=== PATIENT | female | born 1950 | race Caucasian/White ===

== ENCOUNTER 2016-09-12 07:29 | Outpatient (CLI) | payer MEDICARE, OTHER | END 2016-09-12 07:30 | disposition home or self-care (01) | DX: Z00.00 Encounter for general adult medical examination without abnormal findings (principal); M81.0 Age-related osteoporosis without current pathological fracture; Z13.6 Encounter for screening for cardiovascular disorders; Z80.41 Family history of malignant neoplasm of ovary ==

== ENCOUNTER 2016-10-03 13:25 | Outpatient (CLI) | payer MEDICARE, OTHER ==
--- NOTE | 2016-10-05 14:34 | Mammography Report ---
DIGITAL SCREENING MAMMOGRAM: 10/03/2016 CLINICAL INDICATION: A 66-year-old with history of late childbearing, family history of breast cance r for screening. COMPARISON: 09/2015, 09/2014, 07/2013, 07/2012, 06/2011, 04/2010, 04/2009, 06/2007. TECHNIQUE: Routine CC and MLO projections were obtained of the breasts as well as bilateral laterall y exaggerated craniocaudal views. FINDINGS: The breasts again demonstrate heterogeneously dense fibroglandular parenchyma bilaterally. Coarse and punctate, typically benign calcifications are present. No suspicious masses, clustered microcalcifications, or regions of architectural distortion are identified. IMPRESSION: BENIGN FINDINGS. RECOMMENDATION: Routine annual screening unless otherwise clinically indicated. BI-RADS category 2, benign findings. STANDARD QUALIFYING STATEMENTS 1. This examination was reviewed with the aid of Computer-Aided Detection (CAD). 2. A negative or benign imaging report should not delay biopsy if clinically suspicious findings are present. Consider surgical consultation if warranted. More than 5% of cancers are not identified by i maging. 3. Dense breasts may obscure an underlying neoplasm. JOB #: [id number] EXT JOB #:[id number]
== END 2016-10-03 13:26 | disposition home or self-care (01) ==
LOC: DI 13:25
PROVIDERS: ATTEND Physician Assistant Medical
DX: Z12.31 Encounter for screening mammogram for malignant neoplasm of breast (principal); Z80.3 Family history of malignant neoplasm of breast
CPT/HCPCS: 77067

== ENCOUNTER 2016-10-03 13:26 | Outpatient (CLI) | payer MEDICARE, OTHER | END 2016-10-03 13:27 | disposition home or self-care (01) | DX: Z13.820 Encounter for screening for osteoporosis (principal); M81.0 Age-related osteoporosis without current pathological fracture; Z78.0 Asymptomatic menopausal state ==

== ENCOUNTER 2017-02-12 07:10 | Outpatient (CLI) | payer MEDICARE, OTHER ==
--- NOTE | 2017-02-12 13:23 | CARDIAC PROCEDURE NOTE ---
DATE OF SERVICE: 02/12/2017 00:00:00 PROCEDURE: Ej protocol treadmill for echocardiographic left ventricular imaging. INDICATIONS: A 66-year-old female with positive family history and with atypical chest symptoms. PROCEDURE: The patient was exercised in the standard fashion on Ej protocol for 10 minutes and 5 s econds, essentially 4 minutes beyond predicted time. She had a normal blood pressure and pulse respon se. She experienced no chest pain. There were no diagnostic EKG changes. She had 1 PVC during recover y, but otherwise no ectopy was noted. IMPRESSION: Negative ETT in a patient undergoing procedure for echocardiographic imaging. See echo re carol for detail. JOB #: [id number] EXT JOB #:[id number]
[2017-02-13 09:59] VITALS: BP 102/60
== END 2017-02-12 07:11 | disposition home or self-care (01) ==
LOC: DI 07:10
PROVIDERS: ATTEND Physician Assistant Medical
DX: R00.2 Palpitations (principal); Z82.49 Family history of ischemic heart disease and other diseases of the circulatory system
CPT/HCPCS: 93350

== ENCOUNTER 2017-02-14 10:35 | Outpatient (CLI) | payer MEDICARE, OTHER | END 2017-02-14 10:36 | disposition home or self-care (01) | LOC: LAB 10:35 | PROVIDERS: ATTEND Physician Assistant Medical | DX: Z01.89 Encounter for other specified special examinations (principal) | CPT/HCPCS: 36415 ==

== ENCOUNTER 2017-10-25 07:32 | Outpatient (CLI) | payer MEDICARE, OTHER ==
[2017-10-25 07:49] LABS: BASOPHILS % (AUTO) 0.8 %; EOSINOPHILS # (AUTO) 0.1 10^3/uL (0.0-0.7); EOSINOPHILS % (AUTO) 2.7 %; HGB - HEMOGLOBIN 13.6 g/dL (12.0-16.0); LYMPHOCYTES # (AUTO) 2.1 10^3/uL (1.5-3.5); LYMPHOCYTES % (AUTO) 38.5 %; MEAN CORPUSCULAR HEMOGLOBIN 30.1 pg (27.0-31.0); MEAN CORPUSCULAR HGB CONC 34.2 g/dL (32.0-36.0); MEAN CORPUSCULAR VOLUME 87.8 fL (81.0-99.0); MEAN PLATELET VOLUME 7.3 fL (7.9-10.8); MONOCYTES # (AUTO) 0.5 10^3/uL (0.0-1.0); MONOCYTES % (AUTO) 9.7 %; NEUTROPHILS # (AUTO) 2.7 10^3/uL (1.5-6.6); NEUTROPHILS % (AUTO) 48.3 %; PLT - PLATELET COUNT 221 10^3/uL (130-450); RED BLOOD COUNT 4.51 10^6/uL (4.20-5.40); RED CELL DISTRIBUTION WIDTH 13.3 % (12.0-15.0); WHITE BLOOD COUNT 5.5 x10^3/uL (4.8-10.8)
[2017-10-25 08:16] LABS: ALBUMIN 3.9 g/dL (3.2-5.5); ALBUMIN/GLOBULIN RATIO 1.5 (1.0-2.2); ALKALINE PHOSPHATASE 64 IU/L (42-121); ALT ALANINE AMINOTRANSFERASE 34 IU/L (10-60); AST ASPARTATE AMINOTRANSFERASE 29 IU/L (10-42); BILIRUBIN,TOTAL 0.9 mg/dL (0.2-1.0); BUN - BLOOD UREA NITROGEN 15 mg/dL (6-20); CALCIUM 8.7 mg/dL (8.5-10.3); CARBON DIOXIDE - CO2 27 mmol/L (21-32); CHLORIDE 105 mmol/L (101-111); CHOL/HDL RATIO 3.2 (<4.4); CHOLESTEROL 202 mg/dL; CREATININE 0.9 mg/dL (0.4-1.0); GFR - MDRD 62 (>89); GLUCOSE 101 mg/dL (70-100); HDL CHOLESTEROL 63 mg/dL; LDL CHOLESTEROL,CALCULATED 125 mg/dL; SODIUM 138 mmol/L (135-145); TOTAL PROTEIN 6.5 g/dL (6.7-8.2); VLDL CHOLESTEROL 14 mg/dL
[2017-10-25 09:01] LABS: CA 125 12.2 U/mL (0.0-35.0)
[2017-10-25 09:05] LABS: THYROID STIMULATING HORMONE 2.3 uIU/mL (0.34-5.60)
[2017-10-26 16:02] LABS: HEPATITIS C ANTIBODY NON-REACTIVE (NON-REACTIVE)
== END 2017-10-25 07:33 | disposition home or self-care (01) ==
LOC: LAB 07:32
PROVIDERS: ATTEND Physician Assistant Medical
DX: M81.0 Age-related osteoporosis without current pathological fracture (principal); Z79.899 Other long term (current) drug therapy; G47.00 Insomnia, unspecified; Z72.89 Other problems related to lifestyle; Z80.41 Family history of malignant neoplasm of ovary; R00.2 Palpitations; E78.2 Mixed hyperlipidemia
CPT/HCPCS: 36415; 80053; 80061; 82306; 83721; 84443; 85025; 86304; 86803

== ENCOUNTER 2017-11-01 09:36 | Outpatient (CLI) | payer MEDICARE, OTHER ==
--- NOTE | 2017-11-02 14:45 | Mammography Report ---
SCREENING MAMMOGRAM: 11/01/2017 COMPARISON: 10/03/2016, 09/30/2015, 10/12/2014, 08/04/2013, 07/31/2012, 07/03/2011 and 04/28/2010. TECHNIQUE: Bilateral digital CC, exaggerated CC, and MLO projections. FINDINGS: The breast tissue is extremely dense. Scattered benign-appearing calcifications are similar to previous. No dominant mass, architectural distortion, skin thickening, suspicious microcalcifications or interval change. IMPRESSION: NEGATIVE. BIRADS CATEGORY - 1. RECOMMENDATION: Suggest to return to routine screening in 12 months. STANDARD QUALIFYING STATEMENTS: 1. This examination was reviewed with the aid of Computer-Aided Detection (CAD). 2. A negative or benign imaging report should not delay biopsy if clinically suspicious findings are present. Consider surgical consultation if warranted. More than 5% of cancers are not identified by imaging. 3. Dense breasts may obscure an underlying neoplasm. TD: 11/02/2017 13:04
== END 2017-11-01 09:37 | disposition home or self-care (01) ==
LOC: DI 09:36
PROVIDERS: ATTEND Physician Assistant Medical
DX: Z12.31 Encounter for screening mammogram for malignant neoplasm of breast (principal)
CPT/HCPCS: 77067

== ENCOUNTER 2018-11-25 12:20 | Outpatient (CLI) | payer MEDICARE, OTHER ==
--- NOTE | 2018-11-25 16:16 | Ultrasound Report ---
Reason: FAMILY HISTORY OF OVARIAN CANCER IN 1ST DEGREE REL Procedure Date: 11/25/2018 Accession Number: [id number] / [id number] Procedure: US - Pelvic w/Transvaginal CPT Code: FULL RESULT: EXAM: PELVIC ULTRASOUND EXAM DATE: 11/25/2018 12:37 PM. CLINICAL HISTORY: FAMILY HISTORY OF OVARIAN CANCER IN 1ST DEGREE REL. COMPARISON: Pelvic ultrasound 04/02/2014. TECHNIQUE: Realtime transabdominal pelvic scan performed to identify the uterus and adnexa and as an overview of other pelvic structures, followed by transvaginal scan to provide greater detail of the uterus and adnexa, with static image documentation. FINDINGS: Uterus: 5.6 x 1.8 x 3.1 cm, volume 16.3 cc. Anteverted position. Normal overall size and echotexture. Masses: 1 x 0.9 x 0.8 cm possible anterior uterine fibroid. Endometrium: 1.7 mm. Normal. Cervix: Unremarkable. Right Ovary: Not seen. No adnexal masses. Left Ovary: Not seen. No adnexal masses. Free Fluid: None. Other: None. IMPRESSION: Essentially negative pelvic ultrasound for age. No free fluid or adnexal masses appreciated. RADIA
== END 2018-11-25 12:21 | disposition home or self-care (01) ==
LOC: DI 12:20
PROVIDERS: ATTEND Family Medicine
DX: Z80.41 Family history of malignant neoplasm of ovary (principal)
CPT/HCPCS: 76830; 76856

== ENCOUNTER 2018-11-25 12:26 | Outpatient (CLI) | payer MEDICARE, OTHER ==
--- NOTE | 2018-11-26 10:42 | Mammography Report ---
Reason: FAMILY HISTORY OF BREAST CANCER,SCREENING MAMMO Procedure Date: 11/25/2018 Accession Number: [id number] / [id number] Procedure: TRAM - Screening Mammo w/Kalyan CPT Code: FULL RESULT: EXAM: Screening Mammo w/Kalyan DATE: 11/25/2018 1:46 PM CLINICAL HISTORY: Mother and grandmother with history of breast cancer. Routine screening. TECHNIQUE: (B) - Bilateral CC and MLO views were obtained. COMPARISON: 11/01/2017, 10/03/2016, 09/30/2015, 10/12/2014 PARENCHYMAL PATTERN: (VD) - The breasts demonstrate extremely dense parenchyma bilaterally, limiting the sensitivity of mammography. FINDINGS: No significant interval change. There are no suspicious masses, calcifications, or areas of distortion. IMPRESSION: Negative examination. BI-RADS category 1. RECOMMENDATION: (ANNUAL) - Recommend routine annual screening mammography. BI-RADS CATEGORY: (1) - Negative. STANDARD QUALIFYING STATEMENTS: 1. This examination was not reviewed with the aid of Computer-Aided Detection (CAD). 2. A negative or benign imaging report should not preclude biopsy if clinically suspicious findings are present. 3. Dense breasts may obscure an underlying neoplasm. 4. This examination was reviewed with the aid of 3D breast imaging (tomosynthesis).
== END 2018-11-25 12:27 | disposition home or self-care (01) ==
LOC: DI 12:26
PROVIDERS: ATTEND Family Medicine
DX: Z12.31 Encounter for screening mammogram for malignant neoplasm of breast (principal); Z80.3 Family history of malignant neoplasm of breast; Z80.41 Family history of malignant neoplasm of ovary
CPT/HCPCS: 77063; 77067

== ENCOUNTER 2018-12-02 07:55 | Outpatient (CLI) | payer MEDICARE, OTHER ==
[2018-12-02 08:39] LABS: BASOPHILS % (AUTO) 0.8 %; EOSINOPHILS # (AUTO) 0.1 10^3/uL (0.0-0.7); EOSINOPHILS % (AUTO) 1.8 %; HGB - HEMOGLOBIN 13.8 g/dL (12.0-16.0); LYMPHOCYTES % (AUTO) 39.4 %; MEAN CORPUSCULAR HEMOGLOBIN 30.4 pg (27.0-31.0); MEAN CORPUSCULAR HGB CONC 33.6 g/dL (32.0-36.0); MEAN CORPUSCULAR VOLUME 90.5 fL (81.0-99.0); MEAN PLATELET VOLUME 9.8 fL (7.9-10.8); MONOCYTES # (AUTO) 0.6 10^3/uL (0.0-1.0); MONOCYTES % (AUTO) 11.4 %; NEUTROPHILS # (AUTO) 2.4 10^3/uL (1.5-6.6); NEUTROPHILS % (AUTO) 46.4 %; PLT - PLATELET COUNT 227 10^3/uL (130-450); RED BLOOD COUNT 4.54 10^6/uL (4.20-5.40); RED CELL DISTRIBUTION WIDTH 12.9 % (12.0-15.0); WHITE BLOOD COUNT 5.1 x10^3/uL (4.8-10.8)
[2018-12-02 08:41] LABS: ALBUMIN/GLOBULIN RATIO 1.4 (1.0-2.2); ALKALINE PHOSPHATASE 70 IU/L (42-121); ALT ALANINE AMINOTRANSFERASE 24 IU/L (10-60); AST ASPARTATE AMINOTRANSFERASE 25 IU/L (10-42); BUN - BLOOD UREA NITROGEN 15 mg/dL (6-20); CALCIUM 9.3 mg/dL (8.5-10.3); CARBON DIOXIDE - CO2 25 mmol/L (21-32); CHLORIDE 107 mmol/L (101-111); CHOL/HDL RATIO 3.7 (<4.4); CHOLESTEROL 235 mg/dL; CREATININE 0.7 mg/dL (0.4-1.0); GFR - MDRD 83 (>89); GLUCOSE 104 mg/dL (70-100); HDL CHOLESTEROL 64 mg/dL; LDL CHOLESTEROL,CALCULATED 158 mg/dL; LDL/HDL RATIO 2.5 (<4.4); SODIUM 143 mmol/L (135-145); TOTAL PROTEIN 6.9 g/dL (6.7-8.2); VLDL CHOLESTEROL 13 mg/dL
[2018-12-02 09:11] LABS: THYROID STIMULATING HORMONE 2.37 uIU/mL (0.34-5.60)
== END 2018-12-02 07:56 | disposition home or self-care (01) ==
LOC: LAB 07:55
PROVIDERS: ATTEND Family Medicine
DX: M85.80 Other specified disorders of bone density and structure, unspecified site (principal); E78.2 Mixed hyperlipidemia; Z80.3 Family history of malignant neoplasm of breast; S62.9 Unspecified fracture of hand; K58.9 Irritable bowel syndrome, unspecified; Z80.41 Family history of malignant neoplasm of ovary
CPT/HCPCS: 36415; 80053; 80061; 83721; 84443; 85025; 86304

== ENCOUNTER 2020-11-03 07:28 | Outpatient (CLI) | payer MEDICARE, OTHER ==
[2020-11-03 07:50] LABS: BASOPHILS % (AUTO) 0.8 %; EOSINOPHILS # (AUTO) 0.1 10^3/uL (0.0-0.7); EOSINOPHILS % (AUTO) 2.7 %; HCT - HEMATOCRIT 40.4 % (37.0-47.0); HGB - HEMOGLOBIN 13.3 g/dL (12.0-16.0); LYMPHOCYTES # (AUTO) 1.9 10^3/uL (1.5-3.5); LYMPHOCYTES % (AUTO) 38.9 %; MEAN CORPUSCULAR HGB CONC 32.9 g/dL (32.0-36.0); MEAN PLATELET VOLUME 9.7 fL (7.9-10.8); MONOCYTES # (AUTO) 0.4 10^3/uL (0.0-1.0); MONOCYTES % (AUTO) 8.8 %; NEUTROPHILS # (AUTO) 2.4 10^3/uL (1.5-6.6); NEUTROPHILS % (AUTO) 48.4 %; PLT - PLATELET COUNT 240 10^3/uL (130-450); RED BLOOD COUNT 4.44 10^6/uL (4.20-5.40); WHITE BLOOD COUNT 4.9 x10^3/uL (4.8-10.8)
[2020-11-03 08:09] LABS: ALBUMIN 3.7 g/dL (3.2-5.5); ALBUMIN/GLOBULIN RATIO 1.2 (1.0-2.2); ALKALINE PHOSPHATASE 61 IU/L (42-121); ALT ALANINE AMINOTRANSFERASE 22 IU/L (10-60); AST ASPARTATE AMINOTRANSFERASE 22 IU/L (10-42); BILIRUBIN,TOTAL 0.5 mg/dL (0.2-1.0); BUN - BLOOD UREA NITROGEN 15 mg/dL (6-20); CALCIUM 9.4 mg/dL (8.5-10.3); CARBON DIOXIDE - CO2 27 mmol/L (21-32); CHLORIDE 109 mmol/L (101-111); CHOL/HDL RATIO 3.4 (<4.4); CHOLESTEROL 199 mg/dL; CREATININE 0.7 mg/dL (0.4-1.0); GFR - MDRD 82 (>89); GLUCOSE 101 mg/dL (70-100); HDL CHOLESTEROL 59 mg/dL; LDL CHOLESTEROL,CALCULATED 130 mg/dL; LDL/HDL RATIO 2.2 (<4.4); POTASSIUM 4.1 mmol/L (3.5-5.0); SODIUM 143 mmol/L (135-145); TOTAL PROTEIN 6.7 g/dL (6.7-8.2); TRIGLYCERIDES 48 mg/dL; VLDL CHOLESTEROL 10 mg/dL
[2020-11-03 08:16] LABS: CA 125 11.3 U/mL (0.0-35.0)
[2020-11-03 08:20] LABS: THYROID STIMULATING HORMONE 2.07 uIU/mL (0.34-5.60)
== END 2020-11-03 07:29 | disposition home or self-care (01) ==
LOC: LAB 07:28
PROVIDERS: ATTEND Family Medicine
DX: M85.80 Other specified disorders of bone density and structure, unspecified site (principal); E78.2 Mixed hyperlipidemia; Z80.41 Family history of malignant neoplasm of ovary
CPT/HCPCS: 36415; 80053; 80061; 83721; 84443; 85025; 86304

== ENCOUNTER 2020-12-27 09:56 | Emergency (ER) | payer MEDICARE, OTHER ==
[2020-12-27] MEDS ORDERED: SODIUM CHLORIDE 0.9% 1,000 ML IV STA (10:27)
[2020-12-27] MEDS ORDERED: LIDOCAINE VISCOUS 2% 15 ML UDC MM STA (10:28)
[2020-12-27] MEDS ORDERED: MAG HYDROX/AL HYDROX/SIMETH 30 ML UDC PO STA (10:28)
--- NOTE | 2020-12-27 10:28 | ED Physician Documentation ---
PD HPI ABD PAIN - Stated complaint Stated Complaint: ABD PX - Chief complaint Chief Complaint: Abd Pain - History obtained from History obtained from: Patient - Additional information Additional information: Very healthy 70-year-old woman with recent issues with her eyes and was on Dex Methasone/tobramycin drops 2 weeks ago and stopped. Thinks over the last 3 days has developed left upper quadrant pain which is mild, waxing and waning and profound nausea that is worse when she eats or drinks anything. She is never had this before. No diarrhea. No history of abdominal surgeries. She has been taking Zofran which helps a lot with the nausea. Had a recent positive Cologuard, no colonoscopy yet. She is fully immunized against Covid but would like a Covid test today wondering if this might be at the delta variant. Review of Systems Ten Systems: 10 systems reviewed and negative Constitutional: reports: Reviewed and negative Ears: reports: Reviewed and negative Nose: reports: Reviewed and negative Throat: reports: Reviewed and negative Cardiac: reports: Reviewed and negative PD PAST MEDICAL HISTORY - Past Medical History Cardiovascular: None Respiratory: None Endocrine/Autoimmune: None GI: Other : None HEENT: None Psych: None Musculoskeletal: Osteoporosis Derm: None - Past Surgical History General: Colonoscopy - Present Medications Home Medications: Ambulatory Orders Medication Instructions Recorded Confirmed Multivitamin [Multivitamins] 1 each PO 08/18/13 08/18/13 [place]-3 Fatty Acids [Fish Oil] 300 mg PO DAILY 08/18/13 12/27/20 Omeprazole [PriLOSEC] 20 mg PO DAILY #30 cap 12/27/20 Ondansetron Odt [Zofran] 4 mg TL Q6H PRN #20 tablet 12/27/20 Temazepam [Restoril] 1 tab PO HS 12/27/20 12/27/20 Temazepam [Restoril] 15 mg PO HS #10 12/27/20 hydrOXYzine HCL [Hydroxyzine HCl] 10 mg PO Q6H PRN #20 tablet 12/27/20 - Allergies Allergies/Adverse Reactions: Allergies Allergy/AdvReac Type Severity Reaction Status Date / Time prochlorperazine edisylate * Allergy Severe Muscle Verified 12/27/20 10:35 [From Compazine] Spasms prochlorperazine maleate * Allergy Severe Muscle Verified 12/27/20 10:35 [From Compazine] Spasms tetracycline [Tetracycline] Allergy Severe Heart Verified 12/27/20 10:35 Palpitations, Stomach Cramping Corticosteroids Allergy Headache Verified 12/27/20 10:35 (Glucocorticoids) dexamethasone Allergy Hallucinati Verified 12/27/20 10:35 ons PD ED PE NORMAL - Vitals Vital signs reviewed: Yes - General General: Alert and oriented X 3, No acute distress - HEENT HEENT: PERRL, EOMI - Neck Neck: Supple, no meningeal sign, No bony TTP - Cardiac Cardiac: RRR, No murmur - Respiratory Respiratory: No respiratory distress - Abdomen Abdomen: Normal bowel sounds, Soft, Other (She does have a palpable aorta, that said she is fairly skinny so it may not be pathologic. Has mild upper abdominal tenderness without surgical signs) - Back Back: No CVA TTP, No spinal TTP - Derm Derm: Normal color, Warm and dry - Extremities Extremities: No edema, No calf tenderness / cord - Neuro Neuro: Alert and oriented X 3, Normal speech Results - Vitals Vitals: Vital Signs - 24 hr 12/27/20 12/27/20 10:05 13:47 Temperature 36.2 C L Heart Rate 112 H 92 Respiratory 16 18 Rate Blood Pressure 139/82 H 128/78 O2 Saturation 98 98 Oxygen O2 Source Room air - Labs Labs: Laboratory Tests 12/27/20 12/27/20 10:45 10:45 WBC 7.3 RBC 5.17 Hgb 15.6 Hct 46.6 MCV 90.1 MCH 30.2 MCHC 33.5 RDW 12.4 Plt Count 256 MPV 9.6 Neut # (Auto) 5.2 Lymph # (Auto) 1.6 [place] # (Auto) 0.5 Eos # (Auto) 0.1 Baso # (Auto) 0.0 Absolute Nucleated RBC 0.00 Nucleated RBC % 0.0 Sodium 136 Potassium 3.9 Chloride 100 L Carbon Dioxide 24 Anion Gap 12.0 BUN 14 Creatinine 0.8 Estimated GFR (MDRD) 71 L Glucose 100 Calcium 9.7 Total Bilirubin 1.2 H AST 25 ALT 25 Alkaline Phosphatase 77 Total Protein 7.7 Albumin 4.7 Globulin 3.0 Albumin/Globulin Ratio 1.6 Lipase 30 - Rads (name of study) CT A/P Radiology: EMP read contemporaneously PD MEDICAL DECISION MAKING - ED course ED course: 70-year-old woman presents with left upper quadrant pain, benign examination, also nausea but seems to get relief from Zofran. Declined GI cocktail here. CT with some incidental findings which were discussed with the patient, labs unremarkable. She has a colonoscopy scheduled next month. Discussed with her that we will start a PPI and may be consider calling the surgeon to consider adding on an upper endoscopy and expediting. Prior to discharge inquired if she could start some anxiety medicine. She did not want to start an SSRI and wanted something nonaddictive. Departure - Departure Disposition: Home, Self Care Clinical Impression: Abdominal pain Qualifiers: Abdominal location: left upper quadrant Qualified Code(s): R10.12 - Left upper quadrant pain Condition: Good Record reviewed to determine appropriate education?: Yes Instructions: ED PUD Vs Gastritis Follow-Up: Jaime Olivo MD [Provider Admit Priv/Credential] - Prescriptions: hydrOXYzine HCL [Hydroxyzine HCl] 10 mg PO Q6H PRN #20 tablet PRN Reason: Anxiety Omeprazole [PriLOSEC] 20 mg PO DAILY #30 cap Temazepam [Restoril] 15 mg PO HS #10 Ondansetron Odt [Zofran] 4 mg TL Q6H PRN #20 tablet PRN Reason: Nausea / Vomiting Comments: Call Dr. Olivo's office, let them know you are now having upper abdominal issues. They may want to expedite your lower endoscopy and add on an upper endoscopy with biopsies. Return for new or worsening symptoms. You have a Covid test pending. You need to self quarantine until the result is done and negative. Do not leave your house. Do not get near anybody. The results should be done in 48 to 72 hours. We will call with a positive result, the fastest way to get a negative result for confirmation though is to go to the hospital website at [email or web address], click on the my [facility] tab and sign up for the patient portal. If any friends or family get sick and would like to have a Covid test done, but do not have signs or symptoms that would necessitate being hospitalized, we encourage testing through our coronavirus swabbing station, call [phone] to schedule an appointment. Discharge Date/Time: 12/27/20 13:48
[2020-12-27 10:58] LABS: BASOPHILS % (AUTO) 0.5 %; EOSINOPHILS # (AUTO) 0.1 10^3/uL (0.0-0.7); EOSINOPHILS % (AUTO) 0.7 %; HCT - HEMATOCRIT 46.6 % (37.0-47.0); HGB - HEMOGLOBIN 15.6 g/dL (12.0-16.0); LYMPHOCYTES # (AUTO) 1.6 10^3/uL (1.5-3.5); MEAN CORPUSCULAR HEMOGLOBIN 30.2 pg (27.0-31.0); MEAN CORPUSCULAR HGB CONC 33.5 g/dL (32.0-36.0); MEAN CORPUSCULAR VOLUME 90.1 fL (81.0-99.0); MEAN PLATELET VOLUME 9.6 fL (7.9-10.8); MONOCYTES # (AUTO) 0.5 10^3/uL (0.0-1.0); MONOCYTES % (AUTO) 6.2 %; NEUTROPHILS # (AUTO) 5.2 10^3/uL (1.5-6.6); NEUTROPHILS % (AUTO) 70.5 %; PLT - PLATELET COUNT 256 10^3/uL (130-450); RED BLOOD COUNT 5.17 10^6/uL (4.20-5.40); RED CELL DISTRIBUTION WIDTH 12.4 % (12.0-15.0); WHITE BLOOD COUNT 7.3 x10^3/uL (4.8-10.8)
[2020-12-27 11:12] LABS: ALBUMIN 4.7 g/dL (3.2-5.5); ALBUMIN/GLOBULIN RATIO 1.6 (1.0-2.2); BILIRUBIN,TOTAL 1.2 mg/dL (0.2-1.0); CALCIUM 9.7 mg/dL (8.5-10.3); CREATININE 0.8 mg/dL (0.4-1.0); POTASSIUM 3.9 mmol/L (3.5-5.0); TOTAL PROTEIN 7.7 g/dL (6.7-8.2)
[2020-12-27] MEDS ORDERED: ONDANSETRON 4 MG/2 ML VIAL IVP STA (11:31)
[2020-12-27] MEDS ORDERED: IOPAMIDOL-300 100 ML VIAL ONE (11:36)
--- NOTE | 2020-12-27 13:02 | CT Report ---
PROCEDURE: Abdomen/Pelvis W INDICATIONS: IV only, LUQ pain CONTRAST: IV CONTRAST: Isovue 300, 100ml ; *NO PO CONTRAST TECHNIQUE: After the administration of intravenous contrast, 5 mm thick sections acquired from the diaphragms to the symphysis. 5 mm thick coronal and sagittal reformats were acquired. For radiation dose reducti on, the following was used: automated exposure control, adjustment of mA and/or kV according to sean ent size. COMPARISON: None. FINDINGS: Image quality: Excellent. ABDOMEN: Lung bases: Lung bases are clear. Heart size is normal. Solid organs: Liver and spleen are normal in size and enhancement. Gallbladder is within normal strong its Biliary system is non dilated. Pancreas enhances normally. No adrenal nodules. Kidneys demons trate normal size and enhancement, without hydronephrosis. 1.5 cm right renal cyst. Peritoneum and bowel: Bowel loops demonstrate normal wall thickness and caliber. Scattered colonic d iverticuli without evidence of diverticulitis. No free fluid or air. The appendix is normal. Nodes and vessels: No retroperitoneal or mesenteric adenopathy by size criteria. Aorta and inferior vena cava are normal in size. Miscellaneous: No ventral hernias. PELVIS: Genitourinary: Bladder wall thickness is normal. Miscellaneous: No inguinal hernias or adenopathy. Bones: No suspicious bony lesions. No vertebral body compression fractures. Spine degenerative disc disease and facet arthropathy are noted. IMPRESSION: 1. No acute disease process. 2. No dilated loops of bowel. 3. No free fluid or free air. 4. Appendix is normal. 5. Colonic diverticulosis without evidence of diverticulitis. Reviewed by: Xiomy Man MD, PhD on 12/27/2020 1:00 PM PDT Approved by: Xiomy Man MD, PhD on 12/27/2020 1:00 PM PDT Station ID: [id number]
[2020-12-27] MEDS ORDERED: IOPAMIDOL-300 100 ML VIAL IVP ONE (13:15)
[2020-12-27 13:47] VITALS: BP 128/78
== END 2020-12-27 13:48 | disposition home or self-care (01) ==
LOC: ED 09:56
DX: R10.12 Left upper quadrant pain (principal); R11.0 Nausea; K57.30 Diverticulosis of large intestine without perforation or abscess without bleeding; Z20.822 Contact with and (suspected) exposure to COVID-19
CPT/HCPCS: 36415; 74177; 80053; 83690; 85025; 96361; 96374; 99284; Q9967; U0004

== ENCOUNTER 2021-01-18 10:16 | Day surgery (SDC) | payer MEDICARE, OTHER ==
[2021-01-18] MEDS ORDERED: LACTATED RINGERS 1,000 ML IV ONE ×2 (10:40→12:36)
--- NOTE | 2021-01-18 11:05 | ANESTHESIA ---
Pre-Anesthesia VS, & Labs - Diagnosis abdominal pain, nausea, weight loss - Procedure EGD, Colonoscopy Vital Signs: Temp Pulse Resp BP Pulse Ox 36.3 C L 92 13 124/85 H 99 01/18/21 10:40 01/18/21 10:40 01/18/21 10:40 01/18/21 10:40 01/18/21 10:40 Height: 5 ft 4 in Weight (kg): 55.8 kg Body Mass Index: 21.1 BMI Classification: Healthy weight - NPO >8 hours - Is Patient ?: No - Lab Results Lab results reviewed: Yes Home Medications and Allergies Allergies/Adverse Reactions: Allergies Allergy/AdvReac Type Severity Reaction Status Date / Time prochlorperazine edisylate * Allergy Severe Muscle Verified 12/27/20 10:35 [From Compazine] Spasms prochlorperazine maleate * Allergy Severe Muscle Verified 12/27/20 10:35 [From Compazine] Spasms tetracycline [Tetracycline] Allergy Severe Heart Verified 12/27/20 10:35 Palpitations, Stomach Cramping Corticosteroids Allergy Headache Verified 12/27/20 10:35 (Glucocorticoids) dexamethasone Allergy Hallucinati Verified 12/27/20 10:35 ons Anes History & Medical History - Anesthetic History Anesthesia Complications: reports: No previous complications, Muscle weakness Family history of Anesthesia Complications: Denies Family history of Malignant Hyperthermia: Denies - Medical History Cardiovascular: reports: Arrhythmia Pulmonary: reports: None Gastrointestinal: reports: None Urinary: reports: None Musculoskeletal: reports: Osteopenia Endocrine/Autoimmune: reports: None Skin: reports: Other Smoking Status: Never smoker - Surgical History General: reports: Colonoscopy, EGD Results - Echo Results Echo Results: Report reviewed Exam General: Alert, Oriented x3, Cooperative, No acute distress Dental: WNL Mouth Openin Fingerbreadth Neck Mobility: Normal Mallampati classification: I Respiratory: Lungs clear, Normal breath sounds, No respiratory distress, No accessory muscle use Cardiovascular: Regular rate, Normal S1, Normal S2, No murmurs Plan Anesthesia Type: General, Total IV Consent for Procedure(s) Verified and Reviewed: Yes Code Status: Attempt Resuscitation ASA classification: 1-Healthy patient Is this case an emergency?: No
[2021-01-18] MEDS ORDERED: PROPOFOL 200 MG/20 ML VIAL IVP ONE ×2 (11:49→12:31)
[2021-01-18] MEDS ORDERED: LIDOCAINE-PF 2% 10 ML AMP SUBQ ONE (11:49)
[2021-01-18] MEDS ORDERED: GLYCOPYRROLATE 1 MG/5 ML VIAL ONE (12:18)
[2021-01-18 13:03] VITALS: BP 119/77
[2021-01-18] MEDS ORDERED: ONDANSETRON 4 MG/2 ML VIAL ONE (13:03)
--- NOTE | 2021-01-18 13:28 | ANESTHESIA POST OP EVALUATION ---
Anesthesia Post Eval - Post Anesthesia Eval Vitals: Last Vital Signs Temp 36.8 C 01/18/21 12:38 Pulse 71 01/18/21 13:03 Resp 11 L 01/18/21 13:03 BP 119/77 01/18/21 13:03 Pulse Ox 100 01/18/21 13:03 CV Function Including HR & BP: Stable Pain Control: Satisfactory Nausea & Vomiting: Negative Mental Status: Baseline Respiratory Status: Airway Patent Hydration Status: Satisfactory Anesthesia Complications: None
== END 2021-01-18 10:17 | disposition home or self-care (01) ==
LOC: SDS 10:16
PROVIDERS: ATTEND Surgery
PROC: 0DBL8ZZ Excision of Transverse Colon, Via Natural or Artificial Opening Endoscopic (ICD-10-PCS; 2021-01-18)
PROC: 0DB68ZX Excision of Stomach, Via Natural or Artificial Opening Endoscopic, Diagnostic (ICD-10-PCS; principal; 2021-01-18 11:45)
PROC: 0DBP8ZZ Excision of Rectum, Via Natural or Artificial Opening Endoscopic (ICD-10-PCS; 2021-01-18 11:45)
DX: D12.8 Benign neoplasm of rectum (principal); K63.89 Other specified diseases of intestine; K57.30 Diverticulosis of large intestine without perforation or abscess without bleeding; K64.8 Other hemorrhoids; K64.4 Residual hemorrhoidal skin tags; K58.9 Irritable bowel syndrome, unspecified; E78.5 Hyperlipidemia, unspecified; G47.9 Sleep disorder, unspecified; F41.9 Anxiety disorder, unspecified; M85.80 Other specified disorders of bone density and structure, unspecified site; Z79.899 Other long term (current) drug therapy
CPT/HCPCS: 43239; 45380; 45385; J7120

== ENCOUNTER 2021-02-15 07:57 | Outpatient (CLI) | payer MEDICARE, OTHER ==
[2021-02-15 08:20] LABS: BASOPHILS % (AUTO) 0.6 %; EOSINOPHILS # (AUTO) 0.2 10^3/uL (0.0-0.7); EOSINOPHILS % (AUTO) 3.7 %; HCT - HEMATOCRIT 45.3 % (37.0-47.0); HGB - HEMOGLOBIN 14.9 g/dL (12.0-16.0); LYMPHOCYTES # (AUTO) 2.1 10^3/uL (1.5-3.5); LYMPHOCYTES % (AUTO) 34.5 %; MEAN CORPUSCULAR HEMOGLOBIN 29.9 pg (27.0-31.0); MEAN CORPUSCULAR HGB CONC 32.9 g/dL (32.0-36.0); MEAN PLATELET VOLUME 9.5 fL (7.9-10.8); MONOCYTES # (AUTO) 0.5 10^3/uL (0.0-1.0); MONOCYTES % (AUTO) 8.2 %; NEUTROPHILS # (AUTO) 3.3 10^3/uL (1.5-6.6); NEUTROPHILS % (AUTO) 52.7 %; PLT - PLATELET COUNT 279 10^3/uL (130-450); RED BLOOD COUNT 4.98 10^6/uL (4.20-5.40); RED CELL DISTRIBUTION WIDTH 12.9 % (12.0-15.0); WHITE BLOOD COUNT 6.2 x10^3/uL (4.8-10.8)
[2021-02-15 08:38] LABS: ALBUMIN 4.3 g/dL (3.2-5.5); ALBUMIN/GLOBULIN RATIO 1.3 (1.0-2.2); BILIRUBIN,TOTAL 0.9 mg/dL (0.2-1.0); CALCIUM 9.7 mg/dL (8.5-10.3); CREATININE 0.9 mg/dL (0.4-1.0); POTASSIUM 4.2 mmol/L (3.5-5.0); TOTAL PROTEIN 7.7 g/dL (6.7-8.2)
[2021-02-15 08:53] LABS: THYROID STIMULATING HORMONE 1.67 uIU/mL (0.34-5.60)
[2021-02-15 08:59] LABS: PROLACTIN 7.09 ng/mL
[2021-02-15 09:20] LABS: FOLLICLE STIMULATING HORMONE 66.17 mIU/mL
[2021-02-15 09:21] LABS: LUTEINIZING HORMONE 29.53 mIU/mL
== END 2021-02-15 07:58 | disposition home or self-care (01) ==
LOC: LAB 07:57
PROVIDERS: ATTEND Family Medicine
DX: K58.9 Irritable bowel syndrome, unspecified (principal); T50.91 Poisoning by, adverse effect of and underdosing of multiple unspecified drugs, medicaments and biological substances; R11.0 Nausea
CPT/HCPCS: 36415; 80053; 82533; 83001; 83002; 84146; 84443; 85025

== ENCOUNTER 2021-04-08 10:51 | Outpatient (CLI) | payer MEDICARE, OTHER ==
[2021-04-15 13:41] LABS: METANEPHRINE 272 mcg/24 h (90-315); NORMETANEPHRINE 274 mcg/24 h (122-676); TOTAL VOLUME 2100 mL
== END 2021-04-08 10:52 | disposition home or self-care (01) ==
LOC: LAB 10:51
PROVIDERS: ATTEND Internal Medicine Endocrinology, Diabetes & Metabolism
DX: R25.1 Tremor, unspecified (principal); F41.9 Anxiety disorder, unspecified; R79.89 Other specified abnormal findings of blood chemistry
CPT/HCPCS: 81599; 82384; 82530; 82570; 83835; 84585

== ENCOUNTER 2021-04-18 08:00 | Outpatient (CLI) | payer MEDICARE, OTHER ==
[2021-04-18 12:42] LABS: BASOPHILS # (AUTO) 0.1 10^3/uL (0.0-0.1); BASOPHILS % (AUTO) 0.6 %; EOSINOPHILS # (AUTO) 0.2 10^3/uL (0.0-0.7); EOSINOPHILS % (AUTO) 1.8 %; HCT - HEMATOCRIT 46.4 % (37.0-47.0); LYMPHOCYTES # (AUTO) 2.1 10^3/uL (1.5-3.5); MEAN CORPUSCULAR HEMOGLOBIN 29.8 pg (27.0-31.0); MEAN CORPUSCULAR HGB CONC 32.3 g/dL (32.0-36.0); MEAN CORPUSCULAR VOLUME 92.1 fL (81.0-99.0); MEAN PLATELET VOLUME 10.6 fL (7.9-10.8); MONOCYTES # (AUTO) 0.6 10^3/uL (0.0-1.0); MONOCYTES % (AUTO) 6.2 %; NEUTROPHILS # (AUTO) 6.2 10^3/uL (1.5-6.6); NEUTROPHILS % (AUTO) 68.1 %; PLT - PLATELET COUNT 337 10^3/uL (130-450); RED BLOOD COUNT 5.04 10^6/uL (4.20-5.40); RED CELL DISTRIBUTION WIDTH 12.8 % (12.0-15.0); WHITE BLOOD COUNT 9.1 x10^3/uL (4.8-10.8)
[2021-04-18 12:54] LABS: ALBUMIN 4.6 g/dL (3.2-5.5); ALBUMIN/GLOBULIN RATIO 1.6 (1.0-2.2); BILIRUBIN,TOTAL 0.8 mg/dL (0.2-1.0); CALCIUM 9.3 mg/dL (8.5-10.3); CREATININE 0.9 mg/dL (0.4-1.0); POTASSIUM 3.9 mmol/L (3.5-5.0); TOTAL PROTEIN 7.4 g/dL (6.7-8.2)
[2021-04-18 13:12] LABS: FREE T3 3.53 pg/mL (2.5-3.9); THYROID STIMULATING HORMONE 2.02 uIU/mL (0.34-5.60)
[2021-04-18 13:13] LABS: FREE T4 (FREE THYROXINE) 1.04 ng/dL (0.58-1.64)
[2021-04-18 13:18] LABS: PROLACTIN 6.93 ng/mL
== END 2021-04-18 23:59 | disposition home or self-care (01) ==
LOC: LAB.WCP 08:00
PROVIDERS: ATTEND Internal Medicine
DX: R79.89 Other specified abnormal findings of blood chemistry (principal); R11.0 Nausea; R23.2 Flushing; F41.9 Anxiety disorder, unspecified
CPT/HCPCS: 36415; 80053; 81599; 82024; 82150; 82533; 83690; 84146; 84305; 84439; 84443; 84481; 85025; 86316

== ENCOUNTER 2021-06-07 13:08 | Outpatient (CLI) | payer MEDICARE, OTHER ==
--- NOTE | 2021-06-08 16:08 | Mammography Report ---
BILATERAL DIGITAL SCREENING MAMMOGRAM 3D/2D WITH EXAGGERATED CC: 06/07/2021 CLINICAL: Routine screening. Family history of breast cancer. Comparison is made to exams dated: 11/25/2018 mammogram, 11/01/2017 mammogram, and 10/03/2016 mammogram - [facility]. The tissue of both breasts is extremely dense, which lowers the sensit ivity of mammography. There are benign vascular calcifications in both breasts. No significant masses, calcifications, or other findings are seen in either breast. There has been no significant interval change. IMPRESSION: BENIGN There is no mammographic evidence of malignancy. A 1 year screening mammogram is recommended. This exam was interpreted at Station ID: [id number]. NOTE: For mammograms, a report in lay terms will be sent to the patient. Approximately 15% of breast malignancies will not be visualized mammographically. In the management of a palpable breast mass, a negative mammogram must not discourage biopsy of a clinically suspicious lesion. Electronically Signed By: Diana calderon/yamel:06/07/2021 16:30:09 ACR BI-RADS Category 2: Benign Finding(s) 3342F PARENCHYMAL PATTERN: (VD) - The breast(s) demonstrate(s) extremely dense parenchyma, limiting the sen sitivity of mammography. BI-RADS CATEGORY: (2) - 2 RECOMMENDATION: (ANNUAL) - Recommend routine annual screening mammography. [id number] 1 year screening LATERALITY: (B)
== END 2021-06-07 13:09 | disposition home or self-care (01) ==
LOC: DI.S 13:08
PROVIDERS: ATTEND Family Medicine
DX: Z12.31 Encounter for screening mammogram for malignant neoplasm of breast (principal); Z80.3 Family history of malignant neoplasm of breast

== ENCOUNTER 2021-07-04 09:42 | Outpatient (CLI) | payer MEDICARE, OTHER | END 2021-07-04 09:43 | disposition home or self-care (01) | LOC: LAB 09:42 | PROVIDERS: ATTEND Student in an Organized Health Care Education/Training Program | DX: R79.89 Other specified abnormal findings of blood chemistry (principal) | CPT/HCPCS: 81599; 82530 ==

== ENCOUNTER 2022-05-02 07:38 | Outpatient (CLI) | payer MEDICARE, OTHER ==
[2022-05-02 07:56] LABS: BASOPHILS # (AUTO) 0.1 10^3/uL (0.0-0.1); BASOPHILS % (AUTO) 0.9 %; EOSINOPHILS # (AUTO) 0.1 10^3/uL (0.0-0.7); EOSINOPHILS % (AUTO) 2.3 %; HCT - HEMATOCRIT 43.4 % (37.0-47.0); HGB - HEMOGLOBIN 14.4 g/dL (12.0-16.0); LYMPHOCYTES # (AUTO) 2.1 10^3/uL (1.5-3.5); LYMPHOCYTES % (AUTO) 36.7 %; MEAN CORPUSCULAR HEMOGLOBIN 30.3 pg (27.0-31.0); MEAN CORPUSCULAR HGB CONC 33.2 g/dL (32.0-36.0); MEAN CORPUSCULAR VOLUME 91.4 fL (81.0-99.0); MEAN PLATELET VOLUME 9.8 fL (7.9-10.8); MONOCYTES # (AUTO) 0.5 10^3/uL (0.0-1.0); MONOCYTES % (AUTO) 8.8 %; NEUTROPHILS # (AUTO) 2.9 10^3/uL (1.5-6.6); NEUTROPHILS % (AUTO) 51.3 %; PLT - PLATELET COUNT 246 10^3/uL (130-450); RED BLOOD COUNT 4.75 10^6/uL (4.20-5.40); RED CELL DISTRIBUTION WIDTH 12.8 % (12.0-15.0); WHITE BLOOD COUNT 5.7 x10^3/uL (4.8-10.8)
[2022-05-02 08:11] LABS: ALBUMIN 4.2 g/dL (3.2-5.5); ALBUMIN/GLOBULIN RATIO 1.4 (1.0-2.2); ALKALINE PHOSPHATASE 66 IU/L (42-121); ALT ALANINE AMINOTRANSFERASE 26 IU/L (10-60); AST ASPARTATE AMINOTRANSFERASE 26 IU/L (10-42); BILIRUBIN,TOTAL 0.9 mg/dL (0.2-1.0); BUN - BLOOD UREA NITROGEN 20 mg/dL (6-20); CALCIUM 9.3 mg/dL (8.5-10.3); CARBON DIOXIDE - CO2 26 mmol/L (21-32); CHLORIDE 103 mmol/L (101-111); CHOL/HDL RATIO 3.6 (<4.4); CHOLESTEROL 250 mg/dL; CREATININE 0.8 mg/dL (0.4-1.0); GFR - MDRD 71 (>89); GLUCOSE 107 mg/dL (70-100); HDL CHOLESTEROL 69 mg/dL; LDL CHOLESTEROL,CALCULATED 171 mg/dL; LDL/HDL RATIO 2.5 (<4.4); POTASSIUM 4.2 mmol/L (3.5-5.0); SODIUM 138 mmol/L (135-145); TOTAL PROTEIN 7.1 g/dL (6.7-8.2); TRIGLYCERIDES 52 mg/dL; VLDL CHOLESTEROL 10 mg/dL
[2022-05-02 08:17] LABS: CA 125 11.1 U/mL (0.0-35.0)
[2022-05-02 08:21] LABS: THYROID STIMULATING HORMONE 2.57 uIU/mL (0.34-5.60)
== END 2022-05-02 07:39 | disposition home or self-care (01) ==
LOC: LAB 07:38
PROVIDERS: ATTEND Physician Assistant
DX: F41.1 Generalized anxiety disorder (principal); K58.9 Irritable bowel syndrome, unspecified; E78.2 Mixed hyperlipidemia; E24.9 Cushing's syndrome, unspecified; R11.0 Nausea; Z80.41 Family history of malignant neoplasm of ovary
CPT/HCPCS: 36415; 80053; 80061; 82533; 83721; 84443; 85025; 86304

== ENCOUNTER 2022-08-04 10:33 | Outpatient (CLI) | payer MEDICARE, OTHER ==
--- NOTE | 2022-08-07 11:15 | Mammography Report ---
BILATERAL DIGITAL SCREENING MAMMOGRAM 3D/2D WITH EXAGGERATED CC: 08/04/2022 CLINICAL: Routine screening. Family history of breast cancer. Comparison is made to exams dated: 06/07/2021 mammogram, 11/01/2017 mammogram, 11/25/2018 mammogram, 2016 mammogram, 09/30/2015 mammogram, and 10/12/2014 mammogram - [facility]. Both breasts are extremely dense, which lowers the sensitivity of mammography (category d />75% gland ular tissue). There are benign vascular calcifications in both breasts. No significant masses, calcifications, or other findings are seen in either breast. There has been no significant interval change. IMPRESSION: BENIGN There is no mammographic evidence of malignancy. A 1 year screening mammogram is recommended. Based on Tyrer-Cuzick model (a risk assessment model), the patient's lifetime risk is 31.2% and her 1 0 year risk is 24.2%. If a patient has an elevated risk, a more comprehensive evaluation should be co nsidered and/or a referral to a genetic counselor. The [place] [employer], [place] [employer], and NCCN Guidelines advise the consideration of Breast MRI as an adjunct to screening mammo graphy in patients whose "Lifetime risk to develop breast cancer" is 20% or higher. This exam was interpreted at Station ID: [id number]. NOTE: For mammograms, a report in lay terms will be sent to the patient. Approximately 15% of breast malignancies will not be visualized mammographically. In the management of a palpable breast mass, a negative mammogram must not discourage biopsy of a clinically suspicious lesion. Electronically Signed By: Kevin arreguin/yamel:08/04/2022 16:30:46 letter sent: No_Letter ACR BI-RADS Category 2: Benign Finding(s) 3342F PARENCHYMAL PATTERN: (VD) - The breast(s) demonstrate(s) extremely dense parenchyma, limiting the sen sitivity of mammography. BI-RADS CATEGORY: (2) - 2 Mammogram [id number] 1 year screening LATERALITY: (B)
== END 2022-08-04 10:34 | disposition home or self-care (01) ==
LOC: DI 10:33
DX: Z12.31 Encounter for screening mammogram for malignant neoplasm of breast (principal); Z80.3 Family history of malignant neoplasm of breast

== ENCOUNTER 2023-05-30 07:04 | Outpatient (CLI) | payer MEDICARE, OTHER ==
[2023-05-30 07:36] LABS: BASOPHILS # (AUTO) 0.1 10^3/uL (0.0-0.1); BASOPHILS % (AUTO) 0.9 %; EOSINOPHILS # (AUTO) 0.2 10^3/uL (0.0-0.7); HCT - HEMATOCRIT 43.2 % (37.0-47.0); LYMPHOCYTES # (AUTO) 1.7 10^3/uL (1.5-3.5); LYMPHOCYTES % (AUTO) 31.4 %; MEAN CORPUSCULAR HEMOGLOBIN 29.5 pg (27.0-31.0); MEAN CORPUSCULAR HGB CONC 32.4 g/dL (32.0-36.0); MEAN CORPUSCULAR VOLUME 91.1 fL (81.0-99.0); MEAN PLATELET VOLUME 9.7 fL (7.9-10.8); MONOCYTES # (AUTO) 0.5 10^3/uL (0.0-1.0); MONOCYTES % (AUTO) 8.5 %; NEUTROPHILS % (AUTO) 55.8 %; PLT - PLATELET COUNT 230 10^3/uL (130-450); RED BLOOD COUNT 4.74 10^6/uL (4.20-5.40); RED CELL DISTRIBUTION WIDTH 13.4 % (12.0-15.0); WHITE BLOOD COUNT 5.4 x10^3/uL (4.8-10.8)
[2023-05-30 07:51] LABS: ALBUMIN 4.1 g/dL (3.2-5.5); ALBUMIN/GLOBULIN RATIO 1.4 (1.0-2.2); ALKALINE PHOSPHATASE 66 IU/L (42-121); ALT ALANINE AMINOTRANSFERASE 20 IU/L (10-60); AST ASPARTATE AMINOTRANSFERASE 19 IU/L (10-42); BILIRUBIN,TOTAL 0.5 mg/dL (0.2-1.0); BUN - BLOOD UREA NITROGEN 13 mg/dL (6-20); CALCIUM 9.3 mg/dL (8.5-10.3); CARBON DIOXIDE - CO2 30 mmol/L (21-32); CHLORIDE 106 mmol/L (101-111); CHOL/HDL RATIO 3.8 (<4.4); CHOLESTEROL 247 mg/dL; CREATININE 0.8 mg/dL (0.6-1.3); GFR - MDRD 70 (>89); GLUCOSE 95 mg/dL (74-104); HDL CHOLESTEROL 65 mg/dL; LDL CHOLESTEROL,CALCULATED 158 mg/dL; LDL/HDL RATIO 2.4 (<4.4); SODIUM 140 mmol/L (135-145); TRIGLYCERIDES 118 mg/dL (48-352); VLDL CHOLESTEROL 24 mg/dL
[2023-05-30 08:07] LABS: THYROID STIMULATING HORMONE 2.41 uIU/mL (0.34-5.60)
== END 2023-05-30 07:05 | disposition home or self-care (01) ==
LOC: LAB 07:04
PROVIDERS: ATTEND Physician Assistant
DX: E78.2 Mixed hyperlipidemia (principal); F41.1 Generalized anxiety disorder; M81.0 Age-related osteoporosis without current pathological fracture; Z80.41 Family history of malignant neoplasm of ovary
CPT/HCPCS: 36415; 80053; 80061; 82306; 83721; 84443; 85025; 86304

== ENCOUNTER 2023-08-15 15:54 | Outpatient (CLI) | payer MEDICARE, OTHER | END 2023-08-15 15:55 | disposition home or self-care (01) | LOC: LAB 15:54 | PROVIDERS: ATTEND Physician Assistant | DX: E67.3 Hypervitaminosis D (principal) | CPT/HCPCS: 36415; 82306 ==

== ENCOUNTER 2023-09-24 12:21 | Outpatient (CLI) | payer MEDICARE, OTHER ==
--- NOTE | 2023-09-25 10:12 | Mammography Report ---
BILATERAL DIGITAL DIAGNOSTIC MAMMOGRAM 3D/2D: 09/24/2023 CLINICAL: Diffuse left breast pain. Due for bilateral exam. Comparison is made to exams dated: 08/04/2022 mammogram, 06/07/2021 mammogram, 11/25/2018 mammogram, 11/01 mammogram, 10/03/2016 mammogram, and 09/30/2015 mammogram - [facility]. Both breasts are heterogeneously dense, which may obscure small masses (category c / 51-75% glandular tissue). No significant masses, calcifications, or other findings are seen in either breast. IMPRESSION: NEGATIVE There is no abnormality seen in the left breast to correspond with the area of clinical concern and d iffuse, lateral, non-focal pain, however, recommend clinical follow up for persistent or worsening s ymptoms, or development of any clinically suspicious findings. There is no mammographic evidence of malignancy. A 1 year screening mammogram is recommended. Findings and recommendations were conveyed to the patient during today's evaluation. Based on the Tyrer Cuzick model (a risk assessment model) the patient's lifetime risk is 19.3% and he r 10 year risk is 17.5%. According to the ACR, ACS, and NCCN guidelines, an annual breast MRI exam al marychuy with mammogram is recommended if the patient's lifetime risk is 20% or greater. This exam was interpreted at Station ID: [id number]. NOTE: For mammograms, a report in lay terms will be sent to the patient. Approximately 15% of breast malignancies will not be visualized mammographically. In the management of a palpable breast mass, a negative mammogram must not discourage biopsy of a clinically suspicious lesion. Electronically Signed By: Kevin Abdul M.D. aty/:09/24/2023 13:20:15 ACR BI-RADS Category 1: Negative 3341F PARENCHYMAL PATTERN: (D) - The breast(s) demonstrate(s) heterogeneously dense fibroglandular parenchy ma. BI-RADS CATEGORY: (1) - 1 RECOMMENDATION: (ANNUAL) - Recommend routine annual screening mammography. [id number] 1 year screening LATERALITY: (B)
== END 2023-09-24 12:22 | disposition home or self-care (01) ==
LOC: DI 12:21
PROVIDERS: ATTEND Physician Assistant
DX: N64.4 Mastodynia (principal); R92.333 Mammographic heterogeneous density, bilateral breasts

== ENCOUNTER 2024-01-29 08:44 | Day surgery (SDC) | payer MEDICARE, OTHER ==
--- NOTE | 2024-01-28 07:20 | HISTORY & PHYSICAL EXAMINATION ---
PMH/PSH - Past Medical History Cardiovascular: positive: Arrhythmia Respiratory: positive: None Endocrine/Autoimmune: positive: None GI: positive: None : positive: None HEENT: positive: None Psych: positive: None Musculoskeletal: positive: Osteopenia Derm: positive: Other MRSA Hx?: No - Past Surgical History General: positive: Colonoscopy, EGD Social & Family Hx - Social History Does the pt smoke?: No Smoking Status: Never smoker Does the pt drink ETOH?: Yes Does the pt have substance abuse?: No Meds/Allgy - Home Medications Home Medications: Ambulatory Orders Medication Instructions Recorded Confirmed Temazepam [Restoril] 15 mg PO HS #10 12/27/20 01/29/24 Multivitamin 1 each PO DAILY 01/29/24 01/29/24 - Allergies Allergies/Adverse Reactions: Allergies Allergy/AdvReac Type Severity Reaction Status Date / Time prochlorperazine edisylate * Allergy Severe Muscle Verified 01/29/24 09:08 [From Compazine] Spasms prochlorperazine maleate * Allergy Severe Muscle Verified 01/29/24 09:08 [From Compazine] Spasms tetracycline [Tetracycline] Allergy Severe Heart Verified 01/29/24 09:08 Palpitations, Stomach Cramping Corticosteroids Allergy Headache Verified 01/29/24 09:08 (Glucocorticoids) dexamethasone Allergy Hallucinati Verified 01/29/24 09:08 ons gluten AdvReac Unknown Verified 01/29/24 09:08 Impression/Plan - Problem List Problem List: Pre-op H&P History of Present Illness: Patient is here today for a consult: colonoscopy . ..................................................................Divina Zhang MA December 13, 2023 10:04 AM. Alayna is a 73 year old female who underwent screening colonoscopy in December 2020. A transverse colon biopsy was performed and was simply normal mucosa and a sessile rectal polyp was removed piecemeal and found to be a tubular adenoma without dysplasia. It was recommended that she have a repeat colon exam in 3 years due to the size of the rectal polyp. Since that examination she has had no lower GI symptoms. She remains active and healthy. She has no FH of colon cancer. She does not take anticoagulants. A recent Cologuard test was +. Mallampati Score Class I: The soft palate, tonsils, anterior and posterior pillars, and the entire uvula are easily visible ASA Physical Status Classification System ASA I: A normal healthy patient Allergies: Allergies Reviewed: Done COMPAZINE (PROCHLORPERAZINE MALEATE) (Critical) DEXAMETHASONE (DEXAMETHASONE) (Critical) STEROIDS (PREDNISONE) (Critical) * GLUTEN (Severe) * METALS (Mild) Social History Reviewed: Done Medications: Meds Reviewed: Done temazepam 15 mg capsule (temazepam) Take 1-2 capsule by mouth at bedtime as needed for sleep FOR SLEEP. * collagen (bovine) 100% powder (collagen (bovine)) * vitamins B1 B6 B12 liquid (vitamins b1 b6 b12) * VITAMIN C 500 MG ORAL TABLET Take 1 tablet by mouth once a day Daily Multi-Vitamin tablet (multivitamin) Take 1 tablet by mouth once a day cholecalciferol (vitamin D3) 125 mcg (5,000 unit) capsule (cholecalciferol (vitamin d3)) Take 1 tablet by mouth once a day Probiotic 5 billion cell capsule, sprinkle (lacto.acidophilus-bif.animalis) Take 1 tablet by mouth once a day Fish Oil 360-1,200 mg capsule (omega-3 fatty acids-fish oil) Take 2 tablet by mouth once a day * EQL COQ10 CAPSULE Take 1 tablet by mouth once a day Problems: Problems Reviewed: Done Stool DNA-based colorectal cancer screening positive (OSR71-K02.5) Abnormal stool finding (ICD-792.1) (WNR88-Y24.5) Breast pain, left (ICD-611.71) (FEY14-J76.4) Hypervitaminosis D (ICD-278.4) (MMF53-S40.3) Cerumen impaction, left (ICD-380.4) (SRO62-N57.22) Sleep disorder (ICD-780.50) (FRH90-J85.9) Elevated lipase (ICD-790.5) (IZV77-W42.8) Sigmoid diverticulosis (ICD-562.10) (QNW80-Y47.30) 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) (BZN47-G50.9) Tubular adenoma of colon (ICD-211.3) (IYN51-Q69.6) Generalized anxiety disorder (ICD-300.02) (JKY65-A93.1) Colon cancer screening (ICD-V76.51) (NTO62-C85.11) Tachyarrhythmia - Parexcimal Supraventricular (ICD-785.0) (MPK85-Q29.0) Family history of ovarian cancer in 1st degree relative (ICD-V16.41) (ICD10- Z80.41) Osteopenia (ICD-733.90) (VET90-Y16.80) Hyperlipidema NOS (combined) (ICD-272.4) (XFS89-G96.2) Family history of malignant neoplasm of ovary in first degree relative (ICD- V16.41) (IWJ92-C09.41) Family history breast cancer (ICD-V16.3) (UFE43-U65.3) Insomnia, chronic (ICD-780.52) (GDV88-O44.00) IBS (irritable bowel syndrome) (ICD-564.1) (MMM84-S81.9) Basal cell carcinoma, face (ICD-173.31) (PWM13-V66.310) Osteoporosis (ICD-733.00) (NMF59-V31.0) Past Medical History: Reviewed history from 04/25/2023 and no changes required: colle's fx bilateral from ice skating. sleep distrubance mercury poisoning form injecstion of teeth amalgum when filing removed wheN she retired FUNCITTONAL BOWEL SYNDROME.- IBS Hyperlipidemia Osteopenia Sequelae of Fracture at Wrist & Hand Level - Both does not do well with any vaccines, large immune repsonses for extended periods Ophthalmology: [facility] in [place] Past Surgical History: Reviewed history from 04/25/2023 and no changes required: MOHS 04/12 facial BCC R wrist - pinning/plating 05/14 Family History Summary: Family History Reviewed: 12/13/2023 Family History of Breast Cancer for Mother - Entered On: 10/01/2018 Family History of Other Medical Problems for Mother, Primary contributor to . . quick decline and at age 84. was smoker. - Entered On: 11/05/2018 Family History of Other Cancer for Father, Primary contributor to . . renal cancer at 73, was a smoker - Entered On: 11/05/2018 Family History of Ovarian Cancer for Sister, Primary contributor to . . age 65 - Entered On: 10/01/2018 Risk Factors-CCC: Smoked Tobacco Use: Never smoker Smokeless Tobacco Use: Never Vaping / e-cigarette use: Never Tobacco Use Comments: Childhood Exposure - Mother & Father Passive Smoke Exposure: yes Alcohol Use: yes Type: Wine Drinks per day: 1 Drug Use: no Review of Systems General Denies fever, anorexia and weight loss. GI Denies abdominal pain, nausea, vomiting, diarrhea, constipation, change in bowel habits, melena, hematochezia, jaundice, gas/bloating, indigestion/heartburn, dysphagia and odynophagia. Breast Denies left breast lump, right breast lump, nipple discharge, bloody discharge from nipple, breast pain, abnormal mammogram and breast enlargement. CV Denies chest pains, palpitations, syncope and peripheral edema. Resp Denies cough, shortness of breath, hemoptysis, wheezing and pleuritic chest pain. Vascular Denies varicose veins, leg swelling, leg redness, leg coolness, pain in legs with walking, resting leg pain, pain at night in legs and blue toe(s). Denies vaginal discharge, incontinence, dysuria, hematuria, urinary frequency, abnormal vaginal bleeding, pelvic pain and . Wound Denies wound redness, wound discharge, wound pain, opening of wound, purulent discharge and bleeding from wound. Derm Denies suspicious lesions, new skin lesions, changing mole(s), rash, itching and history of skin cancer. Neuro Denies paralysis, paresthesias, seizures and frequent headaches. Psych Denies depression, anxiety, memory loss, suicidal ideation, hallucinations, paranoia, phobia and confusion. Endo Denies cold intolerance, heat intolerance, polydipsia, polyphagia, polyuria and unusual weight change. Heme Denies abnormal bruising, bleeding and enlarged lymph nodes. MS Denies back pain, sciatica and arthritis. Other Denies stoma redness, pain around stoma, discharge from stoma, pain from venous catheter, redness at vascular access site and purulent drainage from vascular access site. Vital Signs: Patient Profile: 73 Years Old Female Height: 64 inches (163.4 cm) Weight: 133.4 pounds BMI: 22.98 O2 Sat: 99 % on room air Temp: 98.0 degrees F temporal Pulse rate: 69 / minute Pulse rhythm: regular Resp: 14 per minute BP sittin / 72 Cuff size: regular Vitals Entered By: Divina Zhang MA (December 13, 2023 10:05 AM) Problems were reviewed with the patient during this visit. Medications were reviewed with the patient during this visit. Allergies were reviewed with the patient during this visit. Allergies: COMPAZINE (PROCHLORPERAZINE MALEATE) (Critical) DEXAMETHASONE (DEXAMETHASONE) (Critical) STEROIDS (PREDNISONE) (Critical) * GLUTEN (Severe) * METALS (Mild) Physical Exam General: well developed, well nourished, in no acute distress Head: normocephalic and atraumatic Eyes: PERRLA/EOM intact; conjunctiva and sclera clear Ears: Normal hearing Nose: no deformity, discharge, inflammation, or lesions Mouth: no deformity or lesions with good dentition Neck: no masses, thyromegaly, or abnormal cervical nodes Lungs: clear bilaterally to A & P Heart: regular rate and rhythm, S1, S2 without murmurs, rubs, gallops, or clicks Abdomen: bowel sounds positive; abdomen soft and non-tender without masses, organomegaly, or hernias noted Msk: no deformity or scoliosis noted with normal posture and gait Pulses: pulses normal in all 4 extremities Extremities: no clubbing, cyanosis, edema, or deformity noted with normal full range of motion of all joints Neurologic: no focal deficits, CN II-XII grossly intact with normal reflexes, coordination, muscle strength and tone Skin: Several recent skin lesion treatments upper back Cervical Nodes: no significant adenopathy Psych: alert and cooperative; normal mood and affect; normal attention span and concentration Blood Pressure: Today's BP: 123/72 mmHg Assessment: 1) Personal history of rectal polyp and + DNA stool exam Plan: 1) Colonoscopy under monitored sedation Consent: Alayna has been counseled for the procedure, it's indications, risks, benefits and expected outcome as well as alternative therapies. We specifically discussed risks associated with anesthesia and insertion of the endoscope into the large intestine which includes bleeding and injury to the colon which may require surgical intervention. Alayna understands, agrees, and consents to the proposed operative strategy and requests that we proceed with the procedure as outlined in our discussion. Tim Juan MD, [facility] General Surgery Service Date: 01/29/2024; 10:45 Chart Update: Patient examined, chart reviewed. There are no changes to the patient's clinical status that would preclude proceeding with the scheduled procedure today. Tim Juan MD, [facility] General Surgery Service
[2024-01-29] MEDS: LACTATED RINGERS 1,000 ML IV ONE ×2 (08:57→11:15)
[2024-01-29] MEDS ORDERED: PROPOFOL 500 MG/50 ML 500 MG/50 ML VIAL ONE (09:59)
--- NOTE | 2024-01-29 10:11 | ANESTHESIA ---
Pre-Anesthesia VS, & Labs - Diagnosis positive cologuard - Procedure colonoscopy Vital Signs: Temp Pulse Resp BP Pulse Ox O2 Flow Rate 36.7 C 78 16 133/77 H 98 01/29/24 08:58 01/29/24 08:58 01/29/24 08:58 01/29/24 08:58 01/29/24 08:58 Height: 5 ft 4 in Weight (kg): 58.9 kg Body Mass Index: 22.3 BMI Classification: Normal - NPO >8 hours - Is Patient ?: No Home Medications and Allergies Home Medications: Ambulatory Orders Multivitamin 1 each PO DAILY 01/29/24 Multivitamin 1 each PO DAILY 01/29/24 Allergies/Adverse Reactions: Allergies Allergy/AdvReac Type Severity Reaction Status Date / Time prochlorperazine edisylate * Allergy Severe Muscle Verified 01/29/24 09:08 [From Compazine] Spasms prochlorperazine maleate * Allergy Severe Muscle Verified 01/29/24 09:08 [From Compazine] Spasms tetracycline [Tetracycline] Allergy Severe Heart Verified 01/29/24 09:08 Palpitations, Stomach Cramping Corticosteroids Allergy Headache Verified 01/29/24 09:08 (Glucocorticoids) dexamethasone Allergy Hallucinati Verified 01/29/24 09:08 ons gluten AdvReac Unknown Verified 01/29/24 09:08 Anes History & Medical History - Anesthetic History Anesthesia Complications: reports: No previous complications - Medical History Cardiovascular: reports: None Pulmonary: reports: None Gastrointestinal: reports: Other Urinary: reports: None Neuro: reports: None Musculoskeletal: reports: None Endocrine/Autoimmune: reports: None Skin: reports: Other Smoking Status: Never smoker Psychosocial: reports: No issues indicated History of Cancer?: No - Surgical History General: reports: Colonoscopy Orthopedic: reports: Other Dermatologic: reports: Skin cancer surgery Exam General: Alert, Oriented x3, Cooperative, No acute distress Dental: WNL Mouth Openin Fingerbreadth Neck Mobility: Normal Mallampati classification: I Thyromental Distance: 4-6 cm Mental/Cognitive Status: Alert/Oriented X3, Normal for patient Plan Anesthesia Type: General, Total IV Consent for Procedure(s) Verified and Reviewed: Yes Code Status: Attempt Resuscitation ASA classification: 1-Healthy patient Is this case an emergency?: No
[2024-01-29] MEDS ORDERED: LIDOCAINE-PF 2% 10 ML AMP SUBQ ONE (10:25)
[2024-01-29 11:52] VITALS: BP 104/78; O2SAT 100
--- NOTE | 2024-01-29 12:31 | ANESTHESIA POST OP EVALUATION ---
Anesthesia Post Eval - Post Anesthesia Eval Vitals: Last Vital Signs Temp 36.2 C L 01/29/24 11:31 Pulse 68 01/29/24 11:51 Resp 16 01/29/24 11:51 BP 104/78 01/29/24 11:51 Pulse Ox 100 01/29/24 11:51 O2 Flow Rate CV Function Including HR & BP: Stable Pain Control: Satisfactory Nausea & Vomiting: Negative Mental Status: Baseline Respiratory Status: Airway Patent Hydration Status: Satisfactory Anesthesia Complications: None
== END 2024-01-29 08:45 | disposition home or self-care (01) ==
LOC: SDS 08:44
PROVIDERS: ATTEND Surgery
PROC: 0DBP8ZX Excision of Rectum, Via Natural or Artificial Opening Endoscopic, Diagnostic (ICD-10-PCS; principal; 2024-01-29 10:45)
DX: D12.8 Benign neoplasm of rectum (principal); K57.30 Diverticulosis of large intestine without perforation or abscess without bleeding
CPT/HCPCS: 45385; J7120

== ENCOUNTER 2024-01-31 08:00 | Outpatient (CLI) | payer MEDICARE, OTHER | END 2024-01-31 23:59 | disposition home or self-care (01) | LOC: LAB.R 08:00 | PROVIDERS: ATTEND Nurse Practitioner | DX: L01.01 Non-bullous impetigo (principal); C44.99 Other specified malignant neoplasm of skin, unspecified | CPT/HCPCS: 87070; 87205 ==